=== PATIENT | female | born 1985 | race Caucasian/White ===

== ENCOUNTER 2017-10-26 15:54 | Emergency (ER) | payer MEDICAID, OTHER ==
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
[2017-10-26 18:31] VITALS: BP 125/85
== END 2017-10-26 18:31 | disposition home or self-care (01) ==
PROC: 2W3DX1Z Immobilization of Left Lower Arm using Splint (ICD-10-PCS; principal; 2017-10-26)
DX: S52.532A Colles' fracture of left radius, initial encounter for closed fracture (principal); S52.602A Unspecified fracture of lower end of left ulna, initial encounter for closed fracture; X58.XXXA Exposure to other specified factors, initial encounter

== ENCOUNTER 2018-03-08 20:19 | Emergency (ER) | payer MEDICAID ==
[2018-03-08 20:26] VITALS: BP 103/71
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
== END 2018-03-08 21:35 | disposition home or self-care (01) ==
DX: Z48.00 Encounter for change or removal of nonsurgical wound dressing (principal)